=== PATIENT | female | born 2000 | race Caucasian/White ===

== ENCOUNTER 2023-05-12 15:29 | Emergency (ER) | payer BC, MEDICAID, SELFPAY ==
[2023-05-12 15:54] VITALS: BP 138/57; PULSE 82; RESP 18; TEMP 36.8; O2SAT 100; BMI 43.2
[2023-05-12 17:26] LABS: Basophils % 0.5 %; Eosinophils # 0.3 10^3/uL (0.0-0.8); Eosinophils % 4.3 %; Hematocrit 37.8 % (37.0-47.0); Hemoglobin 12.5 g/dL (11.5-15.3); Lymphocytes # 2.1 10^3/uL (0.8-4.8); Mean Corpuscular HGB Conc 33.1 g/dL (30.0-36.0); Mean Corpuscular Hemoglobin 31.3 pg (28.0-34.0); Mean Corpuscular Volume 94.7 fl (81-99); Mean Platelet Volume 10.3 fL (7.4-10.4); Monocytes # 0.5 10^3/uL (0.2-0.9); Monocytes % 8.1 %; Neutrophils % 53.8 %; Nucleated Red Blood Cells % 0 %; Platelet Count 261 10^3/cmm (130-400); Red Blood Count 3.99 10^6/uL (4.1-5.3); Red Cell Distribution Width 13.2 % (12.1-15.1); White Blood Count 6.3 10^3/uL (4.0-10.0)
[2023-05-12] MEDS: loperamide 2 mg Capsule 4 MG PO (17:37)
[2023-05-12] MEDS: ondansetron 2 mg/ML SDV 2 mL 4 MG IVP (17:37)
[2023-05-12] MEDS: sodium chloride 0.9% 1,000 ML 999 ML IV (17:38)
[2023-05-12 17:40] LABS: Alanine Aminotransferase 18 U/L (0-33); Albumin Level 4.2 g/dL (3.5-5.2); Alkaline Phosphatase 86 U/L (35-105); Blood Urea Nitrogen 9 mg/dL (6-20); Calcium 9.1 mg/dL (8.5-10.5); Carbon Dioxide 24 mmol/L (22-29); Chloride 105 mmol/L (98-107); Globulin 2.5 g/dL (1.3-4.6); Glomerular Filtration Rate 105.6 mL/min (90-130); Glucose 77 mg/dL (65-115); Lipase 22 U/L (13-60); Magnesium 1.8 mg/dL (1.7-2.3); Osmolality Calculated 285 mOsm/kg (285-295); Sodium 139 mmol/L (136-145); Total Bilirubin 0.2 mg/dL (0.15-1.2); Total Protein 6.7 g/dL (6.6-8.7)
--- NOTE | 2023-05-12 17:58 | W.ED.ABDPA2 ---
HPI - Abdominal Pain General: Chief Complaint: Abdominal Pain Stated Complaint: abd pain Time Seen by Provider: 05/12/23 17:03 History of Present Illness: 23-year-old female reports that she has had nausea and intermittent vomiting for the last 4 days. She had 2 episodes of diarrhea yesterday but no other diarrhea or stool changes. She denies any URI symptoms, respiratory symptoms, fever, chills, rashes. She has intermittent abdominal pain that is stabbing that seems to move around. Last menstrual cycle was approximately 1 month ago. She is sexually active and not on any control. She has a history of irregular periods Associated Symptoms: Denies chills, dysuria, fever(s) and syncope Review of Systems General: Reports: 10 or more systems reviewed and unremarkable except in HPI and below Const: Denies: fever(s), chills or body aches Eyes: Denies: change in vision ENMT: Denies: throat pain Card: Denies: chest pain, edema or syncope Resp: Denies: dyspnea or productive cough : Denies: flank pain, dysuria or urinary frequency Musc: Denies: neck pain, back pain, extremity pain or extremity swelling Skin/Breast: Denies: rash or erythema Neuro: Denies: headache(s), numbness in extremities, weakness in extremities, lack of coordination or difficulty walking Physical Exam Const: COMMON NORMALS: no limitations, alert and well nourished EXAM LIMITATIONS: no altered mental status HENMT: COMMON NORMALS: normocephalic, atraumatic and external ears normal HEAD & SCALP: normocephalic and atraumatic EXTERNAL EAR: Yes external ears normal MOUTH: no muffled voice Eye: COMMON NORMALS: EOMs intact bilaterally, conjunctivae normal and no scleral icterus CONJUNCTIVA: Yes conjunctivae normal Neck/C-Spine: COMMON NORMALS: no JVD GENERAL: Yes normal visual inspection and Yes trachea midline Resp: COMMON NORMALS: normal respiratory effort, No use of accessory muscles and clear to auscultation bilaterally AUSCULTATION: clear to auscultation bilaterally Cardio: COMMON NORMALS: no JVD, regular rate and regular rhythm RATE: regular rate RHYTHM: regular rhythm GI: COMMON NORMALS: Soft to palpation PALPATION: Yes Soft to palpation and No Guarding due to palpation present (GI) OTHER: Generalized mild tenderness. No appendiceal signs, negative Valladares's Extremity: COMMON NORMALS: normal to inspection Neuro: COMMON NORMALS: moves all extremities, no focal motor deficits and no sensory deficits noted SENSORIUM/ORIENTATION: Yes alert SPEECH: speech normal Psych: COMMON NORMALS: mental status grossly normal, Normal thought process present, cooperative, normal affect and speech normal SPEECH: Yes normal speech THOUGHT PROCESS: Normal thought process present Skin: COMMON NORMALS: no rashes or lesions noted, turgor normal and no jaundice GENERAL SKIN EXAM: no rashes or lesions noted and turgor normal Course Vital Signs: Vital signs: Vital Signs Temperature 98.2 F 05/12/23 15:54 Pulse Rate 84 05/12/23 18:00 Respiratory Rate 17 05/12/23 18:00 Blood Pressure 134/74 05/12/23 18:00 Pulse Oximetry 99 05/12/23 18:00 Oxygen Delivery Me thod Room Air 05/12/23 15:54 MDM - Abdominal Pain Medical Decision Making Well-appearing 23-year-old female with nausea vomiting and 2 episodes of diarrhea. She does not have an acute abdomen. She does not recall any sick contacts. She does not recall any suspect food ingestions. I do need to rule out as this is on the differential diagnosis. Otherwise, nonspecific gastroenteritis seems to be the most likely. I will give her IV fluids, Zofran, loperamide. Update Labs normal. Urine shows nitrite positive with bacteria. Differential diagnosis would be asymptomatic bacteria, UTI, bacterial vaginosis. Urine test is positive. This explains the patient's nausea. She is not have any vaginal bleeding or any related emergencies. Patient will be discharged with instructions to obtain follow-up with TOOL AND DIE MANAGER, Yobani Giron. Lab Data 05/12/23 17:10 05/12/23 17:10 Labs/Radiology: Laboratory Results WBC 6.3 10^3/uL (4.0-10.0) 05/12/23 17:10 RBC 3.99 10^6/uL (4.1-5.3) L 05/12/23 17:10 Hgb 12.5 g/dL (11.5-15.3) 05/12/23 17:10 Hct 37.8 % (37.0-47.0) 05/12/23 17:10 MCV 94.7 fl (81-99) 05/12/23 17:10 MCH 31.3 pg (28.0-34.0) 05/12/23 17:10 MCHC 33.1 g/dL (30.0-36.0) 05/12/23 17:10 RDW 13.2 % (12.1-15.1) 05/12/23 17:10 Plt Count 261 10^3/cmm (130-400) 05/12/23 17:10 MPV 10.3 fL (7.4-10.4) 05/12/23 17:10 Neut % (Auto) 53.8 % 05/12/23 17:10 Lymph % (Auto) 33.0 % 05/12/23 17:10 [place] % (Auto) 8.1 % 05/12/23 17:10 Eos % (Auto) 4.3 % 05/12/23 17:10 Baso % (Auto) 0.5 % 05/12/23 17:10 Neut # (Auto) 3.40 10^3/uL (1.8-7.7) 05/12/23 17:10 Lymph # (Auto) 2.1 10^3/uL (0.8-4.8) 05/12/23 17:10 [place] # (Auto) 0.5 10^3/uL (0.2-0.9) 05/12/23 17:10 Eos # (Auto) 0.3 10^3/uL (0.0-0.8) 05/12/23 17:10 Baso # (Auto) 0.0 10^3/uL (0.0-0.1) 05/12/23 17:10 Nucleated RBC % (auto) 0 % 05/12/23 17:10 Nucleated RBCs # 0.0 /100WBC 05/12/23 17:10 Sodium 139 mmol/L (136-145) 05/12/23 17:10 Potassium 4.4 mmol/L (3.5-5.1) 05/12/23 17:10 Chloride 105 mmol/L (98-107) 05/12/23 17:10 Carbon Dioxide 24 mmol/L (22-29) 05/12/23 17:10 Anion Gap 14.4 (5-19) 05/12/23 17:10 BUN 9 mg/dL (6-20) 05/12/23 17:10 Creatinine 0.7 mg/dL (0.5-0.9) 05/12/23 17:10 GFR Calculation 105.6 mL/min (90-130) 05/12/23 17:10 Glucose 77 mg/dL (65-115) 05/12/23 17:10 Calculated Osmolality 285 mOsm/kg (285-295) 05/12/23 17:10 Calcium 9.1 mg/dL (8.5-10.5) 05/12/23 17:10 Magnesium 1.8 mg/dL (1.7-2.3) 05/12/23 17:10 Total Bilirubin 0.2 mg/dL (0.15-1.2) 05/12/23 17:10 AST 21 U/L (0-32) 05/12/23 17:10 ALT 18 U/L (0-33) 05/12/23 17:10 Alkaline Phosphatase 86 U/L (35-105) 05/12/23 17:10 Total Protein 6.7 g/dL (6.6-8.7) 05/12/23 17:10 Albumin 4.2 g/dL (3.5-5.2) 05/12/23 17:10 Globulin 2.5 g/dL (1.3-4.6) 05/12/23 17:10 Lipase 22 U/L (13-60) 05/12/23 17:10 HCG, Qual Positive (Negative) H 05/12/23 17:39 Urine Color Yellow (Yellow) 05/12/23 17:19 Urine Appearance Cloudy (CLEAR) A 05/12/23 17:19 Urine pH 6 (5-7) 05/12/23 17:19 Ur Specific [place] 1.020 (1.005-1.030) 05/12/23 17:19 Urine Protein Neg (Negative) 05/12/23 17:19 Urine Glucose (UA) Norm (Normal) 05/12/23 17:19 Urine Ketones Negative (Negative) 05/12/23 17:19 Urine Blood Neg (Negative) 05/12/23 17:19 Urine Nitrate Positive (Negative) H 05/12/23 17:19 Urine Bilirubin Neg (Negative) 05/12/23 17:19 Urine Urobilinogen Norm mg/dL (Negative) 05/12/23 17:19 Ur Leukocyte Esterase Negative (Negative) 05/12/23 17:19 Urine RBC 0-4 /hpf (0-2) H 05/12/23 17:19 Urine WBC 0-4 /hpf (0-5) H 05/12/23 17:19 Ur Squamous Epith Cells 5-10 /hpf (0-5) H 05/12/23 17:19 Amorphous Sediment Not Reportable 05/12/23 17:19 Urine Bacteria 4+ /hpf (NONE) H 05/12/23 17:19 Discharge Plan Discharge Patient Disposition: Home Clinical Impression: Positive test, Asymptomatic bacteriuria Condition: Stable Prescriptions: New Macrobid 100 mg capsule 100 mg PO BID 5 Days Qty: 10 0RF Rx Instructions: must administer with a meal/food ondansetron HCl 4 mg tablet 4 mg PO Q8H 3 Days Qty: 9 0RF Discharge Orders: Discharge ED (Routine); Ordered 05/12/23 Ordered By: Margarito Costa Discharge Diet: Usual diet Patient Instructions: at 7 to 10 Weeks (ED), Opioid Safety, Pain Management Activity Restrictions/Additional Instructions: 1. Start vitamins immediately. 2. Avoid all tobacco, drugs and alcohol. Look at all medication instructions and do not take if it is not indicated for . 3. You have bacteria in your urine. I have started you on Macrobid. However, you will need further work-up with an TOOL AND DIE MANAGER. It could be that you have bacterial vaginosis. Nausea and vomiting is very common in early . Call your doctor with any concerns. Return to the emergency department if you have any emergent or life-threatening complaints. Coding Level of Care Code ED Frequency Checker for Sean Ordaz
[2023-05-12 18:00] VITALS: BP 134/74; PULSE 84; RESP 17; O2SAT 99
[2023-05-12 18:01] LABS: Bilirubin Urine Neg (Negative); Blood Urine Neg (Negative); Glucose Urine UA Norm (Normal); Ketones Urine Negative (Negative); Leukocyte Esterase Urine Negative (Negative); Nitrate Urine Positive (Negative); Protein Urine Neg (Negative); Urine Appearance Cloudy (CLEAR); Urine Color Yellow (Yellow); Urobilinogen Urine Norm (Negative); pH Urine 6 (5-7)
[2023-05-12 18:02] LABS: Add Urine Culture? Yes; Add Urine Microscopic? YES; Bacteria Urine 4+ /hpf; RBC Urine 0-4 /hpf (0-2); WBC Urine 0-4 /hpf (0-5)
[2023-05-12 18:05] LABS: Anion Gap 14.4 (5-19); Aspartate Amino Transferase 21 U/L (0-32); Potassium 4.4 mmol/L (3.5-5.1)
[2023-05-12 18:19] LABS: HCG Qualitative Urine. Positive (Negative)
[2023-05-12] MEDS: nitrofurantoin SR (BID) 100 mg Capsule PO (18:57)
[2023-05-12 18:58] VITALS: BP 134/110; PULSE 93; RESP 18
--- NOTE | 2023-05-15 11:46 | DCPLANNER ---
manager called patient due to no primary care physician - no answer at this time.
== END 2023-05-12 19:07 | disposition home or self-care (01) ==
PROVIDERS: Emergency Provider Emergency Medicine
DX: O23.40 Unspecified infection of urinary tract in pregnancy, unspecified trimester (principal); R82.71 Bacteriuria
CPT/HCPCS: 80053; 81001; 81025; 83690; 83735; 85025; 87077; 87086; 87186; 96360; 99284; J2405; J7030

== ENCOUNTER 2023-05-13 16:26 | Emergency (ER) | payer BC, MEDICAID, SELFPAY ==
[2023-05-13 16:38] VITALS: BMI 46.5
[2023-05-13 16:47] VITALS: BP 131/73; PULSE 97; RESP 18; TEMP 36.8; O2SAT 100
--- NOTE | 2023-05-13 17:26 | ED_ITS ---
HPI - Female Genitourinary General: Chief complaint: Urogenital-Female Stated complaint: physician sent, issue Time Seen by Provider: 05/13/23 17:18 History of Present Illness: Presents to the ER with complaints of abnormal ultrasound at [facility]. Patient says she is approximately 4 to 6 weeks . G2, P1 denies any pain cramping fever dysuria hematuria. Patient was [facility] and said they did not see a sac and saw something on her right ovary and worried that she could be neck and having an ectopic . They sent her over here for further evaluation and treatment. Date of Last Menstrual Period: 04/13/23 Review of Systems General: Reports: 10 or more systems reviewed and unremarkable except in HPI and below COUNTS INCLUDE 234 BEDS AT THE [facility] ED Female Reproductive History: Date of last menstrual period: 04/13/23 Physical Exam Const: COMMON NORMALS: no acute distress, average body habitus, patient oriented x3, no limitations, healthy appearing, alert and well nourished Neck/C-Spine: COMMON NORMALS: no JVD Chest: COMMONS NORMALS: normal inspection of the chest and normal palpation of entire chest wall Resp: COMMON NORMALS: normal respiratory effort, No retractions, No use of accessory muscles and clear to auscultation bilaterally AUSCULTATION: clear to auscultation bilaterally Cardio: COMMON NORMALS: no JVD, regular rate, regular rhythm, S1 normal heart sound present, S2 normal heart sound present, No gallops present (Cardio), No clicks present (Cardio), No murmurs present (Cardio) and No rub (Cardio) RATE: regular rate RHYTHM: regular rhythm HEART SOUNDS: S1 normal heart sound present and S2 normal heart sound present GI: COMMON NORMALS: Normal to inspection, nondistended, normoactive bowel sounds present, Soft to palpation, non-tender, No hepatosplenomegaly present, no masses and no bruits PALPATION: Yes Soft to palpation and Yes No hepatosplenomegaly present : COMMON NORMALS: Yes no CVA tenderness BLADDER/KIDNEY EXAM: Yes no CVA tenderness Back/Pelvis: COMMON NORMALS: no CVA tenderness Neuro: COMMON NORMALS: patient oriented x3 SENSORIUM/ORIENTATION: Yes alert Course Vital Signs: Vital signs: Vital Signs Temperature 98.3 F 05/13/23 16:47 Pulse Rate 97 05/13/23 16:47 Respiratory Rate 18 05/13/23 16:47 Blood Pressure 131/73 05/13/23 16:47 Pulse Oximetry 100 05/13/23 16:47 Oxygen Delivery Me thod Room Air 05/13/23 16:47 MDM - Female Medical Decision Making Presented to the ER from care center with a positive test but an abnormal ultrasound. She came here for further evaluation and treatment. Quantitative beta-hCG was 1338 so an OB ultrasound was obtained which was negative for intrauterine but did show a right ovarian 2.3 cm cyst. This was explained in detail to the patient and we stressed the importance of her needing to follow-up for serial quantitative beta hCGs and possible serial ultrasounds as a risk of ectopic is still possible. Patient understood and will present back in 48 hours for a repeat beta-hCG. Differential Diagnosis Unlikely abdominal pain, acute appendicitis, calculus of kidney, constipation, diverticulitis, endometriosis, gastroenteritis, pancreatitis or small bowel obstruction Medical Records I reviewed the patient's medical records. Lab Data I reviewed the patient's lab results. Radiology Impressions Obstetrics Ultrasound 05/13/23 18:22 IMPRESSION: 1. Negative for intrauterine , patient remains at risk for ectopic , close clinical correlation, serial beta HCG levels and follow-up ultrasound as clinically indicated advised. 2. Right ovary 2.3 cm cyst, likely corpus luteal in nature with color blood flow in the right ovary. Laboratory Results Ser , Semi-Qnt 1338.00 mIU/mL 05/13/23 17:48 Discharge Plan Discharge Patient Disposition: Home Clinical Impression: Positive test Condition: Stable Prescriptions: No Action Macrobid 100 mg capsule 100 mg PO BID 5 Days Qty: 10 0RF Rx Instructions: must administer with a meal/food ondansetron HCl 4 mg tablet 4 mg PO Q8H 3 Days Qty: 9 0RF Discharge Orders: Discharge ED (Routine); Ordered 05/13/23 Ordered By: Keyshawn Reyes Patient Instructions: (ED) Activity Restrictions/Additional Instructions: Please follow-up at the urgent care, emergency department, your family practice physician and/or OB in 48 to 72 hours to have a repeat quantitative date of beta-hCG drawn. Your quantitative beta-hCG today was approximately 1350 and this number should be going up in a viable . You should also have repeat ultrasounds done to exclude the possibility of a tubal . Coding Level of Care Code ED Wire Bound Box Machine Operator for Sean Ordaz
--- NOTE | 2023-05-13 18:22 | USR_ITS ---
PROCEDURE INFORMATION: Exam: US , Limited Exam date and time: 05/13/2023 8:07 PM Age: 23 years old Clinical indication: Lmp or gestational age (in weeks): 4w 4d by reported lmp; Other: care center did tas = no sac / no pole, possible abnormal RT tube; ; Prior surgery; Surgery date: 6+ months; Surgery type: Csection first . She is g2-p1; Additional info: Hcg 1350, abnormal US at [facility], , no sac/ pole, possible abnormal right tube LABS AND CLINICAL REPORTS: Serum Choriogonadotropin (HCG): 1350 mIU/mL Last menstrual period start date: 04/11/2023 TECHNIQUE: Imaging protocol: Real-time ultrasound of the maternal uterus with image documentation. Exam focused on the clinical indication. COMPARISON: No relevant prior studies available. FINDINGS: Gestation: Negative for intrauterine , patient remains at risk for ectopic , close clinical correlation, serial beta HCG levels and follow-up ultrasound as clinically indicated advised. MATERNAL: Uterus: Uterus measures 9.9 cm x 5.9 cm x 4.9 cm. Right ovary/adnexa: Right ovary measures 4.4 cm x 3.9 cm x 3.4 cm. Right ovarian volume is 31.4 mL. Right ovary 2.3 cm cyst, likely corpus luteal and nature with color blood flow in the right ovary. Left ovary/adnexa: Left ovary measures 3.4 cm x 2.2 cm x 3.4 cm. Left ovarian volume is 13.4 mL. US/US OB limited [id number] IMPRESSION: 1. Negative for intrauterine , patient remains at risk for ectopic , close clinical correlation, serial beta HCG levels and follow-up ultrasound as clinically indicated advised. 2. Right ovary 2.3 cm cyst, likely corpus luteal in nature with color blood flow in the right ovary.
--- NOTE | 2023-05-15 12:43 | DCPLANNER ---
instructional design manager called patient due to no primary care physician - no answer at this time.
== END 2023-05-13 22:04 | disposition home or self-care (01) ==
PROVIDERS: Emergency Provider Emergency Medicine
DX: O28.3 Abnormal ultrasonic finding on antenatal screening of mother (principal); N83.201 Unspecified ovarian cyst, right side
CPT/HCPCS: 36415; 76815; 84702; 99284

== ENCOUNTER 2023-05-18 20:59 | Emergency (ER) | payer BC, MEDICAID, SELFPAY ==
[2023-05-18 21:12] VITALS: BP 104/73; PULSE 105; RESP 18; TEMP 36.7; O2SAT 96; BMI 44.9
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
[2023-05-18 22:50] LABS: HCG, Serum Qual Positive (Negative)
[2023-05-18 23:52] VITALS: BP 104/73; PULSE 105; RESP 18; TEMP 36.7; O2SAT 96
== END 2023-05-18 23:53 | disposition home or self-care (01) ==
PROVIDERS: Emergency Provider Family Medicine
DX: O9A.319 Physical abuse complicating pregnancy, unspecified trimester (principal); Z3A.00 Weeks of gestation of pregnancy not specified
CPT/HCPCS: 36415; 84702; 84703; 99283

== ENCOUNTER 2023-06-01 17:19 | Emergency (ER) | payer BC, MEDICAID, SELFPAY ==
[2023-06-01 17:44] VITALS: BP 144/73; PULSE 86; RESP 16; TEMP 36.8; O2SAT 95; BMI 46.5
--- NOTE | 2023-06-01 18:13 | USR_ITS ---
PROCEDURE INFORMATION: Exam: US First Trimester, Transabdominal and US , Transvaginal Exam date and time: 06/01/2023 6:46 PM Age: 23 years old Clinical indication: Lmp or gestational age (in weeks): 6 weeks 3 days; Other: Dating inconsistencys; ; Additional info: Elevated hcg LABS AND CLINICAL REPORTS: Last menstrual period start date: 04/11/2023 Gestational age (Established): 7 w 2 d Estimated due date (Established): 01/16/2024 TECHNIQUE: Imaging protocol: Real-time transabdominal obstetrical ultrasound of the maternal pelvis and a first trimester , less than 14 weeks 0 days, with image documentation. Transvaginal imaging was used for better evaluation of the fetus, adnexa, and/or cervix. COMPARISON: US OB limited [id number] 05/13/2023 8:07 PM FINDINGS: Gestation: Live intrauterine gestation. Embryonic/ heart rate: 150 bpm Extra-embryonic membranes/Placenta: Unremarkable. No subchorionic bleed. Amniotic fluid: Amniotic fluid and extra-amniotic fluid is normal for gestational age. BIOMETRY: Gestational age (AUA): 6 w 3 d Mean sac diameter: 1.34 cm. EGA (MSD) is 6 w 2 d Point [place]-Rump length (CRL): 7.3 mm. EGA (CRL) is 6 w 4 d MATERNAL: Uterus: Unremarkable. Cervix: Unremarkable. Right ovary/adnexa: Right ovary measures 3.7 x 3.3 x 2.9 cm. Cystic structure, likely a corpus luteum noted in the right ovary measuring 2.2 x 2.2 x 2.4 cm. Preserved vascular flow. Left ovary/adnexa: Left ovary measures 2.6 x 2.4 x 2.3 cm. No ovarian mass. Preserved vascular flow. Intraperitoneal space: No intraperitoneal free fluid. US/US OB <= 14 weeks fetus [id number] IMPRESSION: Live intrauterine gestation. Estimated gestational age on today's study of 6 weeks 3 days.
--- NOTE | 2023-06-01 18:38 | W.ED.FEMALGU ---
HPI - Female Genitourinary General: Chief complaint: Urogenital-Female Stated complaint: , was told needs ultrasound Time Seen by Provider: 06/01/23 18:14 History of Present Illness: 23-year-old female comes in today for concerns of . Patient was seen 2 to 3 weeks ago and had a hCG level done at that time that showed in the 6000, no noticeable was noted on the imaging at that time. Patient was recommended to follow-up with primary care for further evaluation and treatment. Patient has been unable to follow-up with primary care or LINK WIRE FABRIC MACHINE TENDER in the last 3 weeks and has return to the ER for repeat evaluation. Patient denies any severe pain or discomfort. Patient appears nontoxic. Patient reports no bleeding. This is patient's first and no prior live births or miscarriages. Review of Systems General: Reports: 10 or more systems reviewed and unremarkable except in HPI and below : Reports: other ( no abnormality) Physical Exam Const: COMMON NORMALS: alert HENMT: COMMON NORMALS: normocephalic HEAD & SCALP: normocephalic Neck/C-Spine: COMMON NORMALS: full ROM Resp: COMMON NORMALS: normal respiratory effort Cardio: COMMON NORMALS: regular rate RATE: regular rate Extremity: COMMON NORMALS: normal to inspection Neuro: SENSORIUM/ORIENTATION: Yes alert Skin: COMMON NORMALS: turgor normal GENERAL SKIN EXAM: turgor normal Course Vital Signs: Vital signs: Vital Signs Temperature 98.3 F 06/01/23 17:44 Pulse Rate 86 06/01/23 17:44 Respiratory Rate 16 06/01/23 17:44 Blood Pressure 144/73 06/01/23 17:44 Pulse Oximetry 95 06/01/23 17:44 Oxygen Delivery Me thod Room Air 06/01/23 17:44 MDM - Female Medical Decision Making 23-year-old female comes in today for concerns of viable versus ectopic . Patient reports no abnormal bleeding or pain. Patient was diagnosed with 4 to 5 weeks ago and was seen 2 to 3 weeks ago with the ultrasound at that time that showed no in utero . It was concerned patient may had ectopic and she was recommended to follow-up with LINK WIRE FABRIC MACHINE TENDER but was unable to follow-up. Patient came in tonight due to lack of follow-up and concern for . Patient had been seen at a resource center and had ultrasound that verified the in the uterus but came in today for further evaluation. On exam patient appears nontoxic. Vital signs are normal. Differential diagnosis includes ectopic , miscarriage, molar , normal . Ultrasound with the at 6 weeks and 3 days and no significant abnormalities. Reviewed exam with patient with recommendations for treatment and follow-up. Case management was requested to assist with follow-up with LINK WIRE FABRIC MACHINE TENDER. Patient stated understanding and agreed to plan. Lab Data Radiology Impressions Ultrasound 06/01/23 18:13 IMPRESSION: Live intrauterine gestation. Estimated gestational age on today's study of 6 weeks 3 days. Discharge Plan Discharge Patient Disposition: Home Clinical Impression: First trimester Condition: Stable Discharge Orders: Discharge ED (Routine); Ordered 06/01/23 Ordered By: Kaushik Olivo Patient Instructions: at 7 to 10 Weeks (ED) Activity Restrictions/Additional Instructions: Drink plenty of water and fluids. Healthy diet. No smoking or alcohol consumption during strongly recommended. Follow-up with LINK WIRE FABRIC MACHINE TENDER or primary care regarding medications safe for use during . Return to ED for new concerns. Case management will contact you regarding follow-up appointment with LINK WIRE FABRIC MACHINE TENDER office. Coding Level of Care Code ED Medicine Tech for Sean Ordaz
--- NOTE | 2023-06-02 08:42 | DCPLANNER ---
Addendum entered by Linda Lang 06/11/23 11:16: Patient did attend appointment at [facility] Addendum entered by Linda Lang 06/03/23 10:45: Patient has a follow up appointment scheduled for Friday, June 09, 2023 at 11:30 with Ana Rich at [facility]. Original Note: manager student services had message to schedule a follow up appointment for patient with SHUTTLE CAR OPERATOR. manager student services sent patients information to the front office staff at [facility]. Patients information will be printed and reviewed. Clinic will call patient with appointment information.
--- NOTE | 2023-06-03 10:21 | DCPLANNER ---
international marketing manager called patient due to no primary care physician - no answer at this time.
== END 2023-06-01 19:57 | disposition home or self-care (01) ==
PROVIDERS: Emergency Provider Nurse Practitioner Family
DX: Z34.91 Encounter for supervision of normal pregnancy, unspecified, first trimester (principal); Z3A.01 Less than 8 weeks gestation of pregnancy
CPT/HCPCS: 76801; 99284

== ENCOUNTER → 2023-06-09 11:40 | Outpatient (BNVA) | payer BC, MEDICAID, SELFPAY | PROVIDERS: Visit Provider Nurse Practitioner Women's Health | DX: Z34.90 Encounter for supervision of normal pregnancy, unspecified, unspecified trimester (principal) | CPT/HCPCS: 81000 ==

== ENCOUNTER → 2023-07-06 09:18 | Outpatient (BNVA) | payer BC, MEDICAID, SELFPAY | PROVIDERS: Visit Provider Obstetrics & Gynecology | DX: Z34.90 Encounter for supervision of normal pregnancy, unspecified, unspecified trimester (principal) | CPT/HCPCS: 80307; 81000; 84443; 85027; 86592; 86762; 86803; 86850; 86900; 87086; 87340; 87491; 87591; 87806 ==

== ENCOUNTER → 2023-08-06 10:27 | Outpatient (BNVA) | payer BC, MEDICAID, SELFPAY | PROVIDERS: PCP Nurse Practitioner Family; Visit Provider Nurse Practitioner Women's Health | DX: Z34.80 Encounter for supervision of other normal pregnancy, unspecified trimester (principal) | CPT/HCPCS: 80307; 81000 ==

== ENCOUNTER → 2023-08-26 14:08 | Outpatient (BNVA) | payer BC, MEDICAID, SELFPAY | PROVIDERS: PCP Nurse Practitioner Family; Visit Provider Obstetrics & Gynecology | DX: Z34.92 Encounter for supervision of normal pregnancy, unspecified, second trimester (principal) | CPT/HCPCS: 76805 ==

== ENCOUNTER → 2023-09-22 14:22 | Outpatient (BNVA) | payer BC, MEDICAID, SELFPAY | PROVIDERS: PCP Nurse Practitioner Family; Visit Provider Obstetrics & Gynecology | DX: Z34.80 Encounter for supervision of other normal pregnancy, unspecified trimester (principal) | CPT/HCPCS: 81000; 82950 ==

== ENCOUNTER 2023-10-02 18:20 | Outpatient (CLI) | payer BC, MEDICAID, SELFPAY ==
[2023-10-02] VITALS (11 sets, daily range): BP systolic 110–130; BP diastolic 55–76; PULSE 81–104; RESP 18–20; TEMP 35.9–36.5; BMI 47.9
[2023-10-02 19:03] LABS: Bacteria Urine 1+ /hpf; Bilirubin Urine 1+ (Negative); Blood Urine Neg (Negative); Glucose Urine UA Norm (Normal); Ketones Urine 3+ (Negative); Leukocyte Esterase Urine Negative (Negative); Mucus Urine 2+ /hpf; Nitrate Urine Negative (Negative); Protein Urine Neg (Negative); RBC Urine 0-4 /hpf (0-2); Squamous Epithelial Cell Urine 15-25 /hpf (0-5); Urine Appearance Hazy (CLEAR); Urine Color Yellow (Yellow); Urobilinogen Urine 1 mg/dL (Negative); WBC Urine 0-4 /hpf (0-5); pH Urine 5 (5-7)
[2023-10-02] MEDS: ondansetron 2 mg/ML SDV 2 mL 8 MG IVP (19:18)
[2023-10-02] MEDS: lactated ringers 1,000 ML 999 ML IV (19:19)
[2023-10-02 20:46] LABS: Adenovirus Not Detected (NOT DETECT); Chlamydia Pneumoniae Not Detected (NOT DETECT); Coronavirus 229E,HKU1,NL63,OC4 Not Detected (NOT DETECT); Human Metapneumovirus Not Detected (NOT DETECT); Human Rhinovirus/Enterovirus Detected (NOT DETECT); Influenza A Not Detected (NOT DETECT); Influenza A H1 Not Detected (NOT DETECT); Influenza A H1-2009 Not Detected (NOT DETECT); Influenza A H3 Not Detected (NOT DETECT); Influenza B Not Detected (NOT DETECT); Mycoplasma Pneumoniae Not Detected (NOT DETECT); Parainfluenza Virus Type 1 Not Detected (NOT DETECT); Parainfluenza Virus Type 2 Not Detected (NOT DETECT); Parainfluenza Virus Type 3 Not Detected (NOT DETECT); Parainfluenza Virus Type 4 Not Detected (NOT DETECT); Respiratory Syncytial Virus A Not Detected (NOT DETECT); Respiratory Syncytial Virus B Not Detected (NOT DETECT); SARS-COV-2 Not Detected (NOT DETECT)
[2023-10-02 22:13] LABS: Human Metapneumovirus Not Detected (NOT DETECT)
[2023-10-02 22:14] LABS: Human Rhinovirus/Enterovirus Detected (NOT DETECT); Results from Genmark
== END 2023-10-02 21:33 | disposition home or self-care (01) ==
LOC: OPOB 18:26 → OBGYN 18:28
PROVIDERS: PCP Nurse Practitioner Family; Visit Provider Obstetrics & Gynecology
DX: O26.899 Other specified pregnancy related conditions, unspecified trimester (principal); Z3A.00 Weeks of gestation of pregnancy not specified; R10.9 Unspecified abdominal pain; R11.0 Nausea; R05.9 Cough, unspecified
CPT/HCPCS: 81001; 87635; 87801; 96374; 99211; J2405; J7120

== ENCOUNTER → 2023-10-12 14:47 | Outpatient (BNVA) | payer BC, MEDICAID, SELFPAY | PROVIDERS: PCP Nurse Practitioner Family; Visit Provider Obstetrics & Gynecology | DX: Z34.80 Encounter for supervision of other normal pregnancy, unspecified trimester (principal); Z3A.26 26 weeks gestation of pregnancy | CPT/HCPCS: 76816; 81000 ==

== ENCOUNTER 2023-10-16 08:30 | Outpatient (CLI) | payer BC, MEDICAID, SELFPAY ==
[2023-10-16 08:30] VITALS: BMI 47.9
[2023-10-16 08:55] VITALS: BP 132/61; PULSE 114
[2023-10-16 09:15] VITALS: BP 120/58; PULSE 108
--- NOTE | 2023-10-16 09:34 | PC.NURSE ---
Patient educated on establishing a primary care doctor for non related health issues and the availability of [facility] urgent care. Educated to take all of antibiotics, drink plenty of fluid and get plenty of rest.
== END 2023-10-16 09:36 | disposition home or self-care (01) ==
LOC: OPOB 08:40 → OBGYN 08:43
PROVIDERS: PCP Nurse Practitioner Family; Visit Provider Obstetrics & Gynecology
DX: O21.9 Vomiting of pregnancy, unspecified (principal); Z3A.00 Weeks of gestation of pregnancy not specified
CPT/HCPCS: 59025; 99211

== ENCOUNTER → 2023-11-09 08:50 | Outpatient (BNVA) | payer BC, MEDICAID, SELFPAY | PROVIDERS: PCP Nurse Practitioner Family; Visit Provider Obstetrics & Gynecology | DX: Z36.2 Encounter for other antenatal screening follow-up (principal) | CPT/HCPCS: 76816 ==

== ENCOUNTER → 2025-09-18 16:38 | Outpatient (BNVA) | payer BC, SELFPAY | PROVIDERS: PCP Family Medicine; Visit Provider Family Medicine | DX: J02.9 Acute pharyngitis, unspecified (principal) | CPT/HCPCS: 87071; 87880 ==